=== PATIENT | female | born 1950 | race Caucasian/White ===

== ENCOUNTER 2020-03-27 06:49 | Observation (INO) | payer MEDICARE, OTHER, SELFPAY ==
[2020-03-27] VITALS (13 sets, daily range): BP systolic 148–195; BP diastolic 79–96; PULSE 62–82; RESP 16–19; TEMP 35.8–36.6; O2SAT 93–98
--- NOTE | 2020-03-27 | DI.NM_ITS ---
EXAM: NM SENTNODE INJ ONLY CLINICAL HISTORY: BILAT BREAST CA, PRE MASTECTOMY IN OR. TECHNIQUE: Injected Dose: 1 mCi Tc-99m filtered sulfur colloid Injection only. COMPARISON: No exams were available for comparison FINDINGS: 1 mCi technetium 99 M sulfur colloid was injected subcutaneously in each breast according to protocol . Examination was for injection only. No images were obtained. IMPRESSION: 1. Bilateral sentinel node injection. DATA REPOSITORY:
[2020-03-27 07:33] LABS: HCT 44.6 % (36.0-46.0); HGB 14.5 g/dL (12.0-15.5); Mean Corp. HGB Concentration 32.5 g/dL (32.0-36.0); Mean Corpuscular Hemoglobin 28.2 pg (27.0-33.0); Mean Corpuscular Volume 86.8 fL (80-95); Mean Platelet Volume 10.9 fL (8.0-11.0); Platelet Count 267 x1000/uL (130-400); RBC 5.14 m/cumm (4.00-5.20); RBC Distribution Width 15.4 % (11.7-14.6); White Blood Cell Count 7.28 k/cumm (4.4-10.8)
--- NOTE | 2020-03-27 07:35 | DI.NM_ITS ---
EXAM: NM SENTNODE INJ ONLY CLINICAL HISTORY: BILAT BREAST CA. TECHNIQUE: Injected Dose: 1 mCi Tc-99m filtered sulfur colloid Injection only COMPARISON: NM NM SENTNODE INJ ONLY from 03/27/2020 FINDINGS: 1 mCi technetium 99 M technique sulfur colloid was injected subcutaneously in each breast according t o protocol. Examination was for injection only. No images were obtained. IMPRESSION: 1. Bilateral sentinel node injection. DATA REPOSITORY:
[2020-03-27 07:58] LABS: ALT 23 U/L (14-59); AST 16 U/L (15-37); Albumin 3.5 g/dL (3.4-5.0); Alkaline Phosphatase 71 U/L (46-116); Anion Gap 7.2 mmol/L (3-11); BUN 15 mg/dL (7-18); Bilirubin, Total 0.4 mg/dL (0.2-1.0); CO2 28.8 mmol/L (21.0-32.0); CREATININE 0.83 mg/dL (0.55-1.02); Calcium 9.3 mg/dL (8.5-10.1); Chloride 105 mmol/L (98-107); Glucose 130 mg/dL (74-106); Potassium 4.2 mmol/L (3.5-5.1); Sodium 141 mmol/L (136-145); Total Protein 7.2 g/dL (6.4-8.2)
--- NOTE | 2020-03-27 08:03 | W.PM.OP ---
Operative Note Operative Note DATE OF PROCEDURE: 03/27/20 PRE-OP DIAGNOSIS: Bilateral breast cancer POST-OP DIAGNOSIS: same PROCEDURE: Bilateral mastectomy with bilateral sentinel node biopsy SURGEON: Kyaw Hall ANESTHESIA: GETA (with block) ESTIMATED BLOOD LOSS: 200.0 PATHOLOGY: other (Right and left breasts with three sentinel nodes on the right and one sentinel node on left.) COMPLICATIONS: None Patient was transported to: PACU Patient's condition: stable Indications: Bilateral breast cancer Procedure Description: 4 hours prior to surgery the patient was injected with 1 mc of tsc in to east breast in 4 aloquats intradermally under sterile counditions. The patient was taken to the operating room with both arms out at 90 degree angles on arm rests. Both nipples were prepped with betadyne and a total of 7 cc of methylene blue mixed 50/50 with saline was injected subareolar. Both breasts were prepped with chlorohexadine along with the axillas and sterily draped. Sterile precautions were observed. We started with the right breast. A surface count was obtained in the right axilla and this area was marked. Skin lines were then drawn around the breast incorporating the areola and the skin overlying the mass on the right side, starting just medial to the sternum and ending in the mid axillary line laterally. A 10 blade scalpel was used to make an incision along these lines. I first started with creating the upper flap by grasping the skin edges with penetrating towel clamps. Electrocautery was used to creat the flap the subcutaneous tissue from the breast tissue along the fibrous plane. This carriied out until I was down on the pectoralis major fascia and just below the clavical on the right. The pectoralis fascia with incised with cautery. The breast was elevated off of the pectoralis major with an paulette clamp and the fascia was incised. The pectoralis major fascia along with the breast tissue was removed from medial to lateral with electrocautery until I was beyond the lateral border of the pactoralis major muscle. The breast was then removed without entering the axillary fat pad. The sentinel lymph node was then located on the right using the gamma counter. The axillary fat pad was entered and a total of 3 sentinel nodes were removed with adequate background counts. The wound was irrigated and bleeders were electrocauterized. A stab incision was made inferior lateral to the incision and a kevin drain was placed in to the wound and sutured in position with a 3.0 nylon suture. The breast was sent to pathology with a marking stitch laterally. Three sentinal lymph nodes were then passed off of the table labelled 1, 2, and 3 with the number of counts greast with the first sentinel node and the least with 3rd node. Attention was then directed to the left breast. The breast was removed in a similar fashion as the right. In the axilla though, we found just one sentinel lymph node. Adequate background counts were noted. KEVIN drain was placed in a similar fashion and sutured in place. The skin was closed in a similar fashion and steristrips were placed on both wounds with fluff dressings overtop. The patient was transferred to recovery in satisfactory condition. Gross pathology: Bilateral mastectomy was performed without incident. There was gross visualization of cancer tissue on the margins of the resection. There were no palpable lymph nodes. Right axilla had a surface count of 7657, Invivo [id number], invitro [id number] #[id number], background of 167. Left axilla surface count 273, Invivo 1352, invitro 1375, background 26.
--- NOTE | 2020-03-27 08:07 | W.PM.DS.N ---
DS: Diagnosis Discharge Diagnosis (1) Malignant neoplasm of both breasts: Status: Acute (2) H/O bilateral mastectomy: Status: Acute Discharge Plan Disposition Patient Disposition: HOME Condition: Good Discharge Details Reason For Visit: BILATERAL BREAST CANCER Admit Date/Time: 03/27/20 06:49 Admit Provider: Kyaw Hall Attending Provider: Kyaw Hall Primary Care Provider: Tucker Alatorre Hospital Course Hospital Course: Patient was taken to the operating room on 03/27 where a bilateral mastectomy was performed with sentinel node biopsy. She tolerated the procedure well with minimal blood loss. Pain control afterwards with ibuprofen and tylenol. She had an uneventful night and was able to tolerate a diet. 03/28 cbc remained stable. Drain output minimal. Ready for discharge. Home Meds and New Rx's Prescriptions: Continued aspirin 81 mg Tablet,Delayed Release (Dr/Ec) 81 mg PO DAILY RF: 0 acetaminophen 500 mg Tablet 1,000 mg PO PRN PRNRF: 0 ibuprofen 200 mg Tablet 400 mg PO PRN PRNRF: 0 Discharge Instructions Additional Instructions: Light activity until seen in office. Leave dressing in place until seen in office. Empty and record drain output. Walking to tolerance is good. Return to office as directed. Activity:: light activity until seen in office. Equipment/Supplies:: No Equipment Needed Diet:: As Tolerated Discharge Orders Discharge Orders: Discharge Order (Routine); Ordered 03/28/20 Ordered By: Kyaw Hall DS: Summary Status at Discharge Functional status at discharge: independent ambulation Overall status at discharge: patient is not back to baseline Mental Status: mental status grossly normal and other (normal or baseline) Speech and Movement: speech and movement normal Mood: other (normal or baseline) Affect: normal affect Time Spent with Patient providing and/or coordinating discharge services: Less than 30 minutes Exam Psych Mental Status: mental status grossly normal and other (normal or baseline) Speech and Movement: speech and movement normal Mood: other (normal or baseline) Affect: normal affect DS: Data Vitals/I&O Vitals and I&O: Vital Signs Temperature 35.8 C L 03/27/20 05:59 Pulse 69 03/27/20 05:59 Pulse Rhythm Regular 03/27/20 05:59 Respiratory Rate 16 03/27/20 05:59 Respiratory Effort Non-Labored 03/27/20 05:59 Respiratory Depth Normal 03/27/20 05:59 Respiratory Pattern Normal 03/27/20 05:59 Blood Pressure 148/82 H 03/27/20 05:59 Pulse Oximetry 96 03/27/20 05:59 Oxygen Delivery Method Room Air 03/27/20 05:59 Oxygen Flow Rate 0 03/27/20 05:59 Intake & Output 03/26/20 03/26/20 03/27/20 11:59 23:59 11:59 Weight 119.1 kg Data Completed and Pending Labs on day of discharge: Labs from last 24 hours 03/27/20 03/27/20 07:27 07:27 WBC 7.28 RBC 5.14 Hgb 14.5 Hct 44.6 MCV 86.8 MCH 28.2 MCHC 32.5 RDW 15.4 H Plt Count 267 MPV 10.9 Sodium Pending Potassium Pending Chloride Pending Carbon Dioxide Pending Anion Gap Pending BUN Pending Creatinine Pending Estimated GFR/1.73 m2 Pending Glucose Pending Calcium Pending Total Bilirubin Pending AST Pending ALT Pending Alkaline Phosphatase Pending Total Protein Pending Albumin Pending [facility] Social History Smoking/Tobacco Use Status: Former Tobacco Use Quit Date: 09/05/77 Alcohol Intake: current Alcohol Intake frequency: a few times a month Alcohol type: wine and hard liquor Drug use: Never Substance use type: does not use Do you feel safe at home: Yes Do you feel safe in your relationship?: Yes
[2020-03-27] MEDS: Lactated Ringers 1,000 ML 80 ML IV (08:15)
--- NOTE | 2020-03-27 10:15 | DI.RAD_ITS ---
EXAM: XR CHEST 2V PA LATERAL CLINICAL HISTORY: bilateral mastectomy TECHNIQUE: 2D digital imaging was performed. COMPARISON: No exams were available for comparison FINDINGS: MEDIASTINUM: Normal. HEART: Normal. PULMONARY VASCULATURE: Normal. LUNGS: Clear. PLEURAL SPACE: No pleural effusion or pneumothorax. BONE:Normal. OTHER FINDINGS:Normal. IMPRESSION: No acute pulmonary findings. DATA REPOSITORY: RADIATION DOSE DELIVERED:
[2020-03-27] MEDS: ceFAZolin 2 GM/50 ML BAG IVPB (11:35)
--- NOTE | 2020-03-27 12:35 | BREAST_PTH ---
PATIENT: VALERIANO TRINIDAD LOC: U#:[id number] AGE/SX: 69/F ROOM: 231 RE03/27/[address]: Kyaw Hall : 1950 BED: A DIS: 03/28/2020 SPEC #: [id number] RECD: 03/28/20 12:11 STATUS: MIKY REQ #: [id number] BAILEE: 03/27/20 12:[address]: Kyaw Hall DEPT: Surgical Specimen RECD BY: Chery Oquendo ENTERED: 03/28/20 12:15 SP TYPE: Breast OTHR DR: Tucker Alatorre Tissues: 1 - BREAST MASTECTOMY PARTIAL/SIMPLE 2 - BREAST INCISION/EXCISION 3 - BREAST INCISION/EXCISION 4 - BREAST INCISION/EXCISION 5 - BREAST MASTECTOMY PARTIAL/SIMPLE 6 - BREAST INCISION/EXCISION Procedures: IMMUNOPEROXIDASE STAIN GROSS AND MICRO LEVEL 5 Comments: [id number] (ALL SPECIMENS RADIOACTIVE)
[2020-03-27] MEDS: Lactated Ringers 1,000 ML 75 ML IV (15:26)
[2020-03-27] MEDS: ACETAMINOPHEN 1,000 MG/100 ML BTL 400 MG IVPB (15:53)
--- NOTE | 2020-03-27 19:53 | NUR.NOTE ---
Nursing Note: 03/27/20 patient arrived from PACU via bed at 1620. Pt alert and oriented, hr reg, lsc, hypo bs x 4. Bilat mastectomy dressings in place cdi, kevin drains in place draining bloody drainage. Pt states in no pain. Positive pp, Scds in place. IV in left and right forearm.
[2020-03-27] MEDS: Ibuprofen 200 MG TAB 400 MG PO (20:46)
[2020-03-28 00:25] VITALS: BP 155/72; PULSE 69; RESP 18; TEMP 36; O2SAT 94
[2020-03-28] MEDS: Lactated Ringers 1,000 ML 75 ML IV (01:50)
[2020-03-28 03:50] VITALS: BP 121/73; PULSE 71; RESP 18; TEMP 36; O2SAT 93
[2020-03-28 07:08] LABS: Abs Immature Grans 0.02 k/cumm (0.0-0.09); Absolute Basophil Count 0.01 k/cumm (0.0-0.2); Absolute Eosinophil Count 0.03 k/cumm (0.0-0.7); Absolute Monocyte Count 0.56 k/cumm (0.11-0.7); Basophils % 0.1; Eosinophils % 0.3; HCT 40.4 % (36.0-46.0); HGB 13.1 g/dL (12.0-15.5); Immature Grans % 0.2 %; Mean Corp. HGB Concentration 32.4 g/dL (32.0-36.0); Mean Corpuscular Hemoglobin 28.2 pg (27.0-33.0); Mean Corpuscular Volume 86.9 fL (80-95); Mean Platelet Volume 10.9 fL (8.0-11.0); Monocytes % 4.9; Neutrophils % 81.5; Platelet Count 253 x1000/uL (130-400); RBC 4.65 m/cumm (4.00-5.20); RBC Distribution Width 15.1 % (11.7-14.6); White Blood Cell Count 11.35 k/cumm (4.4-10.8)
[2020-03-28 07:17] LABS: Absolute Lymphocyte Count 1.48 k/cumm (1.2-3.4); Absolute Neutrophil Count 9.25 k/cumm (1.2-6.7)
[2020-03-28 07:50] VITALS: BP 130/74; PULSE 60; RESP 17; TEMP 35.5; O2SAT 96
== END 2020-03-28 08:50 | disposition home or self-care (01) ==
LOC: PDS 10:08 → MS 16:43
PROVIDERS: Admitting Provider Surgery; PCP Family Medicine; Visit Provider Surgery
PROC: 0HTV0ZZ Resection of Bilateral Breast, Open Approach (ICD-10-PCS; CPT 19303; principal; 2020-03-27 11:00)
PROC: 0HTV0ZZ Resection of Bilateral Breast, Open Approach (ICD-10-PCS; CPT 19303; 2020-03-27 11:00)
DX: C50.211 Malignant neoplasm of upper-inner quadrant of right female breast (principal); C50.412 Malignant neoplasm of upper-outer quadrant of left female breast; C77.3 Secondary and unspecified malignant neoplasm of axilla and upper limb lymph nodes; Z17.0 Estrogen receptor positive status [ER+]
CPT/HCPCS: 19303; 38525; 38792; 36415; 76942; 80053; 85027; 99238; A9541; 71046; 85025; 88307; 88361; G0378; J0131; J0690; J1100; J1885; J2001; J2405; J2704; J3475